=== PATIENT | female | born 1935 | race Caucasian/White ===

== ENCOUNTER 2018-11-01 17:55 | Outpatient (CLI) | END 2018-11-01 18:13 | disposition short-term general hospital (02) | LOC: AMBL 17:55 | PROVIDERS: ATTEND Emergency Medicine | DX: S01.111A Laceration without foreign body of right eyelid and periocular area, initial encounter (principal); S61.411A Laceration without foreign body of right hand, initial encounter; S00.11XA Contusion of right eyelid and periocular area, initial encounter; R11.0 Nausea; W01.0XXA Fall on same level from slipping, tripping and stumbling without subsequent striking against object, initial encounter; Y92.59 Other trade areas as the place of occurrence of the external cause; C34.90 Malignant neoplasm of unspecified part of unspecified bronchus or lung; J44.9 Chronic obstructive pulmonary disease, unspecified ==